=== PATIENT | female | born 1965 | race Caucasian/White ===

== ENCOUNTER 2018-03-16 06:33 | Day surgery (SDC) ==
[2018-03-16] MEDS: BETADINE OPTH PREP OP PRN ×2 (07:05→07:55)
[2018-03-16] MEDS: TETRACAINE 0.5% UNIT-DOSE OP PRN ×2 (07:05→07:55)
[2018-03-16] MEDS: CYCLOGYL 2% OPTH OP PRN ×3 (07:06→07:21)
[2018-03-16] MEDS ORDERED: BRIMONIDINE TARTRATE 0.2% OPTH SOL OP PRN (07:17)
[2018-03-16] MEDS ORDERED: LIDOCAINE 1% 20 ML MDV ID STA (07:17)
[2018-03-16] MEDS ORDERED: LIDOCAINE 1%/PHENYLEPHRINE 1.5% BSS (SURGERY) INTRAOCULA ONE (07:17)
[2018-03-16] MEDS ORDERED: ZOFRAN 4 MG/2 ML IVP ONE (07:17)
[2018-03-16] MEDS ORDERED: BSS WITH EPINEPHRINE OP ONE (07:17)
[2018-03-16] MEDS ORDERED: DEX-MOXI-KETOR OPTH INJ 1/0.5/0.4 MG/ML IO ONE (07:17)
[2018-03-16] MEDS ORDERED: ZOFRAN 4 MG/2 ML ONE (08:00)
[2018-03-16] MEDS ORDERED: VERSED ONE (08:00)
[2018-03-16] MEDS ORDERED: SUBLIMAZE ONE (08:00)
[2018-03-16 09:09] VITALS: BP 132/66
[2018-03-16 12:20] VITALS: TEMP 98.2
== END 2018-03-16 09:00 | disposition home or self-care (01) ==
LOC: SURG 06:33
PROVIDERS: ATTEND Ophthalmology
DX: H52.02 Hypermetropia, left eye (principal)

== ENCOUNTER 2018-03-30 08:55 | Day surgery (SDC) ==
[2018-03-30] MEDS: TETRACAINE 0.5% UNIT-DOSE OP PRN ×2 (10:25→10:50)
[2018-03-30] MEDS: BETADINE OPTH PREP OP PRN ×2 (10:25→10:50)
[2018-03-30] MEDS: CYCLOGYL 2% OPTH OP PRN ×3 (10:26→10:36)
[2018-03-30] MEDS ORDERED: ZOFRAN 4 MG/2 ML IVP ONE (10:28)
[2018-03-30] MEDS ORDERED: LIDOCAINE 1% 20 ML MDV ID STA (10:28)
[2018-03-30] MEDS ORDERED: BRIMONIDINE TARTRATE 0.2% OPTH SOL OP PRN (10:28)
[2018-03-30] MEDS ORDERED: LIDOCAINE 1%/PHENYLEPHRINE 1.5% BSS (SURGERY) INTRAOCULA ONE (10:28)
[2018-03-30] MEDS ORDERED: DEX-MOXI-KETOR OPTH INJ 1/0.5/0.4 MG/ML IO ONE (10:28)
[2018-03-30] MEDS ORDERED: BSS WITH EPINEPHRINE OP ONE (10:28)
[2018-03-30 10:36] VITALS: TEMP 98.6
[2018-03-30] MEDS ORDERED: ZOFRAN 4 MG/2 ML ONE (11:05)
[2018-03-30] MEDS ORDERED: DIPRIVAN 20 ML VIAL IVP ONE (11:05)
[2018-03-30] MEDS ORDERED: VERSED ONE (11:05)
[2018-03-30 14:20] VITALS: BP 132/56
== END 2018-03-30 11:50 | disposition home or self-care (01) ==
LOC: SURG 08:55
PROVIDERS: ATTEND Ophthalmology
DX: H52.01 Hypermetropia, right eye (principal)